=== PATIENT | female | born 1955 | race Caucasian/White ===

== ENCOUNTER 2019-06-07 07:48 | Emergency (ER) | payer BC, OTHER ==
--- NOTE | 2019-06-07 07:56 | PDOC ---
History of Present Illness - General Chief Complaint: Injury Stated Complaint: TRIPPED AND FELL Time Seen by Provider: 06/07/19 07:56 - History of Present Illness Initial Comments: 06/07/19 08:12 Pt presents to the ED after mechanical slip and fall. Patient hit her head and her outstretched R hand. Questionable LOC. Ambulatory after the fall. Complaining of pain in the R hand, R knee and R face. Past History - Past Medical History Allergies/Adverse Reactions: Allergies Allergy/AdvReac Type Severity Reaction Status Date / Time No Known Allergies Allergy Verified 06/07/19 07:49 Home Medications: Ambulatory Orders Atorvastatin Ca [Lipitor] 40 mg PO HS 06/07/19 - Psycho Social/Smoking Cessation Hx Smoking History: Unknown if ever smoked Have you smoked in the past 12 months: No Hx Alcohol Use: No Substance Use Type: None Review of Systems - Review of Systems Able to Perform ROS?: Yes Is the patient limited Malay proficient: No Constitutional: No: Symptoms Reported, See HPI, Chills, Diaphoresis, Fever, Loss of Appetite, Malaise, Night Sweats, Weakness, Weight Stable, Unintentional Wgt. Loss, Unexplained wgt Loss, Other HEENTM: No: Symptoms Reported, See HPI, Eye Pain, Blurred Vision, Tearing, Recent change in vision, Double Vision, Cataracts, Ear Pain, Ocular Prothesis, Ear Discharge, Nose Pain, Nose Congestion, Tinnitus, Nose Bleeding, Hearing Loss , Throat Pain, Throat Swelling, Mouth Pain, Dental Problems, Difficulty Swallowing, Mouth Swelling, Other Respiratory: No: Symptoms reported, See HPI, Cough, Orthopnea, Shortness of Breath, SOB with Exertion, SOB at Rest, Stridor, Wheezing, Productive cough, Hemoptysis, Other Cardiac (ROS): No: Symptoms Reported, See HPI, Chest Pain, Edema, Irregular Heart Rate, Lightheadedness, Palpitations, Syncope, Chest Tightness, Other ABD/GI: No: Symptoms Reported, See HPI, Abdominal Distended, Abd. Pain w/ defecation, Blood Streaked Bowels, Constipated, Diarrhea, Difficulty Swallowing , Nausea, Poor Appetite, Poor Fluid Intake, Rectal Bleeding, Vomiting, Indigestion, Abdominal cramping, Tarry Stools, Other : No: Symptoms Reported, See HPI, Burning, Dysuria, Discharge, Frequency, Flank Pain, Hematuria, Incontinence, Pain, Urgency, Testicular Mass, Testicular Swelling, Lesions, Testicular Pain, Other Musculoskeletal: No: Symptoms Reported, See HPI, Back Pain, Gout, Joint Pain, Joint Swelling, Muscle Pain, Muscle Weakness, Neck Pain, Joint Stiffness, Other Integumentary: No: Symptoms Reported, See HPI, Bruising, Change in Color, Change in Hair/Nails, Dryness, Erythema, Flushing, Lesions, Lumps, Pallor, Pruritus, Rash, Sweating, Other Neurological: No: Symptoms reported, See HPI, Headache, Numbness, Paresthesia, Pre-Existing Deficit, Seizure, Tingling, Tremors, Weakness, Unsteady Gait, Ataxia, Dizziness, Other Psychiatric: No: Anxiety, Depression, Frequent Crying, Stressors, Sleep Pattern Change, Emotional Problems, Mood Swings, Change in Appetite, Other Endocrine: No: Symptoms Reported, See HPI, Excessive Sweating, Flushing, Intolerance to Cold, Intolerance to Heat, Increased Hunger, Increased Thirst, Increased Urine, Unexplained Weight Gain, Unexplained Weight Loss, Change in Weight, Other All Other Systems: Reviewed and Negative *Physical Exam - Physical Exam Comments: 06/07/19 08:30 gen: alert, NAD HEENT: + ecchymosis on R sided of face and around R eye. + mild facial bone tenderness. EOMI NEck: no deformity, step off or ecchymosis. No spinous process tenderness CV: RRR no m/r/g Pulm: CTA b/l Abdomen: soft, non tender, non distended, without guarding or rebound Ext: + ecchymosis to R hand centered around 4th and 5th metacarpals. No ecchymosis or tenderness of wrist. Full ROM. + small ecchymosis over R knee. Full ROM. No tenderness over the tibial plateau. Ambulatory in the ED with normal gait. Medical Decision Making - Medical Decision Making 06/07/19 08:34 Pt presents to the ED after mechanical fall with ecchymosis to the face, hand and knee. Will check CT head to rule out intracranial or cervical spinal injury. Neck cleared by nexus criteria. Will check xrays of the R hand to rule out fx. Will reassess. Discharge - Discharge Information Problems reviewed: Yes Clinical Impression/Diagnosis: Contusion Qualifiers: Encounter type: initial encounter Contusion area: head Contusion of head detail : orbital tissues Laterality: right Qualified Code(s): S05.11XA - Contusion of eyeball and orbital tissues, right eye, initial encounter Fracture of metacarpal Qualifiers: Encounter type: initial encounter Metacarpal bone: fifth Fracture type: closed Metacarpal location: base Fracture alignment: nondisplaced Laterality: right Qualified Code(s): S62.346A - Nondisplaced fracture of base of fifth metacarpal bone, right hand, initial encounter for closed fracture Condition: Good Disposition: HOME - Admission No - Follow up/Referral Referrals: Rafael Jane DO [Staff Physician] - - Patient Discharge Instructions Patient Printed Discharge Instructions: DI for Contusion Additional Instructions: you came to the Ed because you fell and had bruising of your hand and face. We did a cat scan of the brain to look for bleeding, which is negative, and an xray of the hand which shows a hand fracture. You should use ice to help with the pain and swelling. You should return to the ED for severe pain and swelling , changes in your vision, severe headache, headache with nausea and vomiting, other new or worsening symptoms. Call orthopedics today for follow for your hand fracture. - Post Discharge Activity Work/Back to School Note: Back to Work
[2019-06-07 08:02] VITALS: BP 125/100; PULSE 78; TEMP 98.3; BMI 25.2
== END 2019-06-07 11:14 | disposition home or self-care (01) ==
LOC: FER 07:48
DX: S05.11XA Contusion of eyeball and orbital tissues, right eye, initial encounter (principal); S62.346A Nondisplaced fracture of base of fifth metacarpal bone, right hand, initial encounter for closed fracture; W01.198A Fall on same level from slipping, tripping and stumbling with subsequent striking against other object, initial encounter; Y93.9 Activity, unspecified; Y92.9 Unspecified place or not applicable
CPT/HCPCS: 70450-TC; 73130-TC-RT-FY; 99281-25

== ENCOUNTER 2020-09-06 17:00 | Observation (INO) | payer BC, OTHER ==
[2020-09-06 17:33] VITALS: BMI 62.4
[2020-09-06] MEDS ORDERED: ASPIRIN 81 MG CHEWABLE TABLETS PO ONE (17:34)
[2020-09-06] MEDS ORDERED: ASPIRIN 81 MG CHEWABLE TABLETS ONE (17:42)
[2020-09-06 17:52] LABS: BASO % 1.3 % (0-2.0); EOS % 5.2 % (0-4.5); HEMATOCRIT 42.8 % (32.4-45.2); LYMPH % 16.2 % (8-40); MCH 29.1 pg (25.7-33.7); MCHC 32.7 g/dl (32.0-36.0); MEAN CELL VOLUME 89.2 fl (80-96); MEAN PLT VOLUME 8.4 fl (7.5-11.1); MONO % 8.6 % (3.8-10.2); NEUT % 68.7 % (42.8-82.8); PLATELET COUNT 242 K/MM3 (134-434); RDW 12.6 % (11.6-15.6); WHITE BLOOD COUNT 6.5 K/mm3 (4.0-10.8)
[2020-09-06 18:14] LABS: ACTIVATED PTT 31.1 SECONDS (25.2-36.5)
[2020-09-06 18:17] LABS: ALBUMIN 4.1 g/dl (3.4-5.0); BILIRUBIN,TOTAL 0.5 mg/dl (0.2-1); CREATININE 0.7 mg/dl (0.55-1.3); MAGNESIUM 2.2 mg/dL (1.8-2.4); POTASSIUM 4.1 mmol/L (3.5-5.1); TOT PROT 6.7 g/dl (6.4-8.2)
[2020-09-06 18:18] LABS: INR 0.98 (0.82-1.09)
[2020-09-06] MEDS ORDERED: ATORVASTATIN CA 40 MG TABLET (FP) PO SCH (22:00)
[2020-09-06] MEDS ORDERED: ATORVASTATIN CA 20 MG TABLET (FP) ONE (22:21)
[2020-09-07 08:24] LABS: BASO % 0.8 % (0-2.0); EOS % 7.2 % (0-4.5); HEMATOCRIT 42.3 % (32.4-45.2); HEMOGLOBIN 13.8 GM/dl (10.7-15.3); LYMPH % 17.9 % (8-40); MCH 29.3 pg (25.7-33.7); MCHC 32.6 g/dl (32.0-36.0); MEAN CELL VOLUME 89.9 fl (80-96); MEAN PLT VOLUME 8.4 fl (7.5-11.1); MONO % 9.5 % (3.8-10.2); NEUT % 64.6 % (42.8-82.8); PLATELET COUNT 200 K/MM3 (134-434); RBC 4.71 M/mm3 (3.60-5.2); RDW 12.5 % (11.6-15.6)
[2020-09-07 08:27] LABS: ALBUMIN 3.5 g/dl (3.4-5.0); BILIRUBIN,TOTAL 0.7 mg/dl (0.2-1); CALCIUM 8.7 mg/dl (8.5-10); CREATININE 0.6 mg/dl (0.55-1.3); PHOSPHOROUS 3.7 mg/dl (2.5-4.9); POTASSIUM 4.1 mmol/L (3.5-5.1); TOT PROT 5.9 g/dl (6.4-8.2)
[2020-09-07] MEDS: ASPIRIN 81 MG CHEWABLE TABLETS PO SCH (09:54)
[2020-09-07] MEDS ORDERED: ATORVASTATIN CA 40 MG TABLET (FP) PO SCH (22:00)
[2020-09-08] MEDS: ASPIRIN 81 MG CHEWABLE TABLETS PO SCH (10:06)
[2020-09-08] MEDS ORDERED: REGADENOSON 0.4 MG/5 ML PRE-FILLED SYRINGE IVPUSH ONE (10:30)
[2020-09-08 15:51] VITALS: BP 134/78; PULSE 80; TEMP 98.6
== END 2020-09-08 17:27 | disposition home or self-care (01) ==
LOC: FER 17:00 → FM/S 18:34 → INTOOBSV 09-07 00:04 → UNDOADMOB 09-07 00:04
PROVIDERS: ADMIT Internal Medicine; ATTEND Nurse Practitioner Acute Care
PROC: 3E033GC Introduction of Other Therapeutic Substance into Peripheral Vein, Percutaneous Approach (ICD-10-PCS; principal; 2020-09-06)
DX: R07.9 Chest pain, unspecified (principal); E78.5 Hyperlipidemia, unspecified; Z20.822 Contact with and (suspected) exposure to COVID-19
CPT/HCPCS: 36415; 71045-TC-FY; 78452-TC; 80053; 82550; 82553; 83735; 84100; 84443; 84484; 85025; 85610; 85730; 93005; 93017; 93306-TC; 99285-25; A9502; C9803; G0378; J2785; U0003